=== PATIENT | female | born 1960 | race Caucasian/White ===

== ENCOUNTER 2018-02-21 09:33 | Inpatient (IN) | payer OTHER, MEDICARE ==
[~2018-02-21] VITALS: Ht 165.1 cm; Wt 118.8 kg
[~2018-02-21 09:33] MED LIST: BENI20TA25; CLON1; DILA4TAB10; LEVO.05; METH40TA9; PROV200T11; [UNRECOGNIZED DRUG - CODE]
[2018-02-21 09:38] VITALS: BP 193/85; PULSE 84; RESP 16; TEMP 98.1; O2SAT 99
[2018-02-21] MEDS ORDERED: LEVO50TA4 PO (09:51)
[2018-02-21] MEDS ORDERED: BENA1TAB42 PO (09:51)
[2018-02-21] MEDS ORDERED: AMBI5TAB PO (09:51)
[2018-02-21] MEDS ORDERED: SUBO8MIS SL (09:51)
[2018-02-21] MEDS ORDERED: LORazepam 2 MG/ML VIAL IV PUSH ONE (10:30)
[2018-02-21] MEDS ORDERED: ACETAMINOPHEN/HYDROcodone 325 MG/5 MG TAB PO ONE (10:30)
--- NOTE | 2018-02-21 10:34 | PD ---
HPI Chief Complaint: Medical Clearance Time Seen by Provider: 09:51 Travel History International Travel<30 days: No Contact w/Intl Traveler<30days: No Traveled to known affect area: No History of Present Illness HPI 57-year-old female presents to the emergency department complaining of chest pain, shortness of breath, nausea, generalized pain all over, her chest feeling heavy, heart racing, body feeling like it is "seizing", hot and cold sweats that are worsening after stopping taking methadone 9 days ago and Lyrica 2 weeks ago. She was in pain management for history of chronic neck pain, disc herniation, and fibromyalgia. She was on methadone for 20 years. Her doctor took her off the Lyrica and the methadone cold turkey. She also reports having suicidal ideation and gesture and was looking for a gun in the house this morning and could not find it. Denies homicidal ideations. Denies fever, vomiting. Symptoms are moderate to severe in severity. Duration chronic. Onset 9-14 days ago with discontinuation of medications. Says her symptoms will be relieved by receiving an opioid. She says she was also seen at [facility] last night and was given Vistaril, Ambien, and Ativan which did no help for her and they basically told her to deal with her withdrawals and get through it. Allergies to prochlorperazine. Has no other medical complaints. Has a primary care provider. No other modifying factors or associated signs and symptoms. PFSH Past Medical History Medical other: Yes (fibromyalgia) Pancreatitis: Yes (CHRONIC) Menopausal: Yes Past Surgical History Appendectomy: Yes (1985) Cholecystectomy: Yes (2005) Social History Alcohol Use: No Tobacco Use: No Substance Use: No Allergies-Medications (Allergen,Severity, Reaction): Coded Allergies: prochlorperazine (Unverified Allergy, Mild, 02/21/18) Reported Meds & Prescriptions Reported Meds & Active Scripts Active Reported Levothyroxine (Levothyroxine Sodium) 137 Mcg Tab 137 Mcg PO DAILY Benazepril-Hydrochlorothiazide 20-12.5 Mg Tab 1 Tab PO DAILY Suboxone Sublingual Film (Buprenorphine-Naloxone Sublingual Film) 8-2 Mg Film 1 Film SL Unique ID number required: Ambien (Zolpidem Tartrate) 5 Mg Tab 5 Mg PO HS PRN Review of Systems Except as stated in HPI: all other systems reviewed are Neg Physical Exam Narrative GENERAL: Well-nourished, well-developed feet patient, in no acute distress; tearful SKIN: Warm and dry. HEAD: Atraumatic. Normocephalic. EYES: Pupils equal and round. ENT: Mucosa pink and moist. NECK: Supple. Trachea midline. CARDIOVASCULAR: Regular rate and rhythm. No murmur appreciated. RESPIRATORY: No accessory muscle use. Clear to auscultation. Breath sounds equal bilaterally. GASTROINTESTINAL: Abdomen soft, non-tender, nondistended. Hepatic and splenic margins not palpable. Bowel sounds are active 4 quadrants. MUSCULOSKELETAL: No obvious deformities. No clubbing. No cyanosis. No edema. NEUROLOGICAL: Awake and alert. Oriented 3. No obvious cranial nerve deficits. Motor grossly within normal limits. Normal speech. Moves all extremities. 5/5 strength to all extremities. PSYCHIATRIC: No delusional thought processes. No hallucinations. Data Data Last Documented VS Vital Signs Date Time Temp Pulse Resp B/P (MAP) Pulse Ox O2 Delivery O2 Flow Rate FiO2 02/21/18 09:38 98.1 84 16 193/85 (121) 99 Orders Orders Complete Blood Count With Diff (02/21/18 10:16) Comprehensive Metabolic Panel (02/21/18 10:16) Thyroid Stimulating Hormone (02/21/18 10:16) Urinalysis - C+S If Indicated (02/21/18 10:16) Psych Screen (02/21/18 10:16) Drug Screen, Random Urine (02/21/18 10:16) Alcohol (Ethanol) (02/21/18 10:16) Salicylates (Aspirin) (02/21/18 10:16) Tylenol (Acetaminophen) (02/21/18 10:16) Electrocardiogram (02/21/18 10:16) Ckmb (Isoenzyme) Profile (02/21/18 10:16) Troponin I (02/21/18 10:16) Chest, Single Ap (02/21/18 10:16) Lorazepam Inj (Ativan Inj) (02/21/18 10:30) Acetamin-Hydrocod 325-5 Mg ([place] 5-325 (02/21/18 10:30) Vascular Access Team Consult/P PRN (02/21/18 10:47) Vascular Poc Ultrasound (02/21/18 ) Lorazepam Inj (Ativan Inj) (02/21/18 11:00) Quetiapine (Seroquel) (02/21/18 15:00) Admit Order (Ed Use Only) (02/21/18 ) Admit To Inpatient Psych (02/21/18 ) Code Status (02/21/18 15:09) Vital Signs (Adult) BRYAN.Q12H.E (02/21/18 15:09) Activity Oob Ad Bridget (02/21/18 15:09) Level Of Observation (Psych) (02/21/18 15:09) Acetaminophen (Tylenol) (02/21/18 15:15) Magnesium Hydroxide Liq (Milk Of Magnesi (02/21/18 15:15) Al-Mag Hy-Si 40-40-4 Mg/Ml Liq (Mag-Al P (02/21/18 15:15) Basic Metabolic Panel (Bmp) (02/22/18 06:00) Lipid Profile (02/22/18 06:00) Hemoglobin (Hgb) A1c (02/22/18 06:00) Electrocardiogram (02/22/18 ) Labs Laboratory Tests Test 02/21/18 13:50 White Blood Count 11.4 TH/MM3 Red Blood Count 4.63 MIL/MM3 Hemoglobin 13.0 GM/DL Hematocrit 39.3 % Mean Corpuscular Volume 85.0 FL Mean Corpuscular Hemoglobin 28.2 PG Mean Corpuscular Hemoglobin Concent 33.1 % Red Cell Distribution Width 14.7 % Platelet Count 220 TH/MM3 Mean Platelet Volume 10.2 FL Neutrophils (%) (Auto) 67.8 % Lymphocytes (%) (Auto) 23.6 % Monocytes (%) (Auto) 6.2 % Eosinophils (%) (Auto) 1.5 % Basophils (%) (Auto) 0.9 % Neutrophils # (Auto) 7.7 TH/MM3 Lymphocytes # (Auto) 2.7 TH/MM3 Monocytes # (Auto) 0.7 TH/MM3 Eosinophils # (Auto) 0.2 TH/MM3 Basophils # (Auto) 0.1 TH/MM3 CBC Comment DIFF FINAL Differential Comment Blood Urea Nitrogen 16 MG/DL Creatinine 1.00 MG/DL Random Glucose 86 MG/DL Total Protein 8.2 GM/DL Albumin 3.9 GM/DL Calcium Level 9.4 MG/DL Alkaline Phosphatase 70 U/L Aspartate Amino Transf (AST/SGOT) 12 U/L Alanine Aminotransferase (ALT/SGPT) 26 U/L Total Bilirubin 0.9 MG/DL Sodium Level 142 MEQ/L Potassium Level 3.6 MEQ/L Chloride Level 108 MEQ/L Carbon Dioxide Level 25.5 MEQ/L Anion Gap 9 MEQ/L Estimat Glomerular Filtration Rate 57 ML/MIN Total Creatine Kinase 49 U/L Troponin I LESS THAN 0.02 NG/ML Thyroid Stimulating Hormone 3rd Gen 2.590 uIU/ML Salicylates Level LESS THAN 1.7 MG/DL Acetaminophen Level LESS THAN 2.0 MCG/ML Ethyl Alcohol Level LESS THAN 3 MG/DL MDM Medical Decision Making Medical Screen Exam Complete: Yes Emergency Medical Condition: Yes Medical Record Reviewed: Yes Differential Diagnosis Opioid withdrawal, depression, suicidal ideation, suicidal gesture, chronic pain , medical clearance for psychiatric admission Narrative Course Patient withdrawing from methadone and Lyrica and having suicidal ideation and gesture of looking for a gun in her home this morning and not being able to find it. I feel the patient meets You act criteria. She was taken off methadone 9 days ago. And she was taken off her Lyrica 2 weeks ago. Patient has multiple complaints. Patient is requesting an opioid. I discussed the patient with Dr. Simeon and he will evaluate the patient. Chest pain protocol ordered. 1020: Dr. Simeon evaluated the patient and agrees the patient needs to be You acted. You act initiated. The patient is asking for an opioid and Dr. Simeon agrees to go ahead and administer an opioid at patient's request. Ativan, [place] ordered. 1159: Chest x-ray with no acute findings. All labs are unremarkable. Troponin less than 0.02. EKG with normal sinus rhythm and without ST elevation or depression; reviewed by Dr. Simeon. Patient is medically cleared for psychiatric evaluation. Diagnosis Primary Impression: Chronic pain Qualified Codes: G89.29 - Other chronic pain Additional Impressions: Opioid withdrawal Suicidal ideation Suicide gesture Qualified Codes: X83.8XXA - Intentional self-harm by other specified means, initial encounter Medical clearance for psychiatric admission Condition: Stable Malissa Del Angel Feb 21, 2018 10:34
--- NOTE | 2018-02-21 10:35 | PD ---
Data Data Last Documented VS Vital Signs Date Time Temp Pulse Resp B/P (MAP) Pulse Ox O2 Delivery O2 Flow Rate FiO2 02/21/18 09:38 98.1 84 16 193/85 (121) 99 Orders Orders Complete Blood Count With Diff (02/21/18 10:16) Comprehensive Metabolic Panel (02/21/18 10:16) Thyroid Stimulating Hormone (02/21/18 10:16) Urinalysis - C+S If Indicated (02/21/18 10:16) Psych Screen (02/21/18 10:16) Drug Screen, Random Urine (02/21/18 10:16) Alcohol (Ethanol) (02/21/18 10:16) Salicylates (Aspirin) (02/21/18 10:16) Tylenol (Acetaminophen) (02/21/18 10:16) Electrocardiogram (02/21/18 10:16) Ckmb (Isoenzyme) Profile (02/21/18 10:16) Troponin I (02/21/18 10:16) Chest, Single Ap (02/21/18 10:16) Lorazepam Inj (Ativan Inj) (02/21/18 10:30) Acetamin-Hydrocod 325-5 Mg ([place] 5-325 (02/21/18 10:30) MDM Supervised Visit with TAYLA: No Narrative Course I, Dr. Simeon, have reviewed the advance practice practitioner's documentation and am in agreement, met with the patient face to face, made the diagnosis, and the medical decision making was done by me. *My assessment and Findings: Patient seen and examined by me in addition to Malissa JIMÉNEZ, 57-year-old female with a history of fibromyalgia, chronic neck pain presents emergency department for evaluation of suicidal ideation. Patient has been weaning herself off of methadone, she states the pain is been getting worse to the point where she is suicidal. She admitted to my nurse practitioner that she was looking for the gun in the house but could not find it this morning. Patient really only wants management of her chronic pain and does not really endorse suicidal attempt to me. This is You act criteria and that has been so filled out by me. 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 It is unclear to me as if the patient's pain is actually may be a component of her chronic depression. Will need additional evaluation by psychiatry. At this time she has no medical complaints that warrant further workup. She was given pain medicine and Ativan. I do not see any reason to do intraparenchymal opiates and benzos at this time. She is stable for psychiatric evaluation. Diagnosis Primary Impression: Suicidal intent Additional Impressions: Depression Fibromyalgia Chronic pain Condition: Stable Melvin Simeon MD Feb 21, 2018 10:35
[2018-02-21] MEDS ORDERED: LORazepam 2 MG/ML VIAL IM ONE (11:00)
--- NOTE | 2018-02-21 11:57 | RADRPT ---
EXAM DATE/TIME: 02/21/2018 11:09 [facility] COMPARISON: No previous studies available for comparison. INDICATIONS : Chest and back pain for months. MEDICAL HISTORY : Hypertension. SURGICAL HISTORY : None. ENCOUNTER: Initial ACUITY: 3 months PAIN SCORE: 9/10 LOCATION: Bilateral chest and back FINDINGS: A single view of the chest demonstrates the lungs to be symmetrically aerated without evidence of mas s, infiltrate or effusion. The cardiomediastinal contours are unremarkable. Osseous structures are intact. CONCLUSION: Normal examination. Moreno Villagran MD on February 21, 2018 at 11:54 Board Certified Radiologist. This report was verified electronically.
[2018-02-21 14:09] LABS: AUTOMATED NEUTROPHIL # 7.7 TH/MM3 (1.8-7.7); BASOPHIL # 0.1 TH/MM3 (0-0.2); BASOPHIL % 0.9 % (0.0-2.0); EOSINOPHIL # 0.2 TH/MM3 (0-0.4); EOSINOPHIL % 1.5 % (0.0-4.0); HEMATOCRIT 39.3 % (35.0-46.0); LYMPH % 23.6 % (9.0-44.0); LYMPHOCYTE # 2.7 TH/MM3 (1.0-4.8); MEAN CORPUSCULAR HEMOGLOBIN 28.2 PG (27.0-34.0); MEAN CORPUSCULAR HGB CONC 33.1 % (32.0-36.0); MEAN PLATELET VOLUME 10.2 FL (7.0-11.0); MONO % 6.2 % (0.0-8.0); MONOCYTE # 0.7 TH/MM3 (0-0.9); NEUT % 67.8 % (16.0-70.0); PLATELET COUNT 220 TH/MM3 (150-450); RED BLOOD COUNT 4.63 MIL/MM3 (4.00-5.30); RED CELL DISTRIBUTION WIDTH 14.7 % (11.6-17.2); WHITE BLOOD COUNT 11.4 TH/MM3 (4.0-11.0)
[2018-02-21 14:42] LABS: ALBUMIN 3.9 GM/DL (3.4-5.0); ALT (GPT) 26 U/L (10-53); AST (GOT) 12 U/L (15-37); BICARBONATE 25.5 MEQ/L (21.0-32.0); BLOOD UREA NITROGEN 16 MG/DL (7-18); CALCIUM 9.4 MG/DL (8.5-10.1); CHLORIDE 108 MEQ/L (98-107); GLOMERULAR FILTRATION RATE 57 ML/MIN (>89); GLUCOSE,RANDOM 86 MG/DL (74-106); SODIUM (NA) 142 MEQ/L (136-145)
[2018-02-21 14:52] LABS: ACETAMINOPHEN LESS THAN 2.0 MCG/ML (10.0-30.0); ALKALINE PHOSPHATASE 70 U/L (45-117); TOTAL BILIRUBIN ADULT 0.9 MG/DL (0.2-1.0); TOTAL PROTEIN 8.2 GM/DL (6.4-8.2); TROPONIN I LESS THAN 0.02 NG/ML (0.02-0.05)
[2018-02-21] MEDS ORDERED: QUEtiapine FUMARATE 100 MG TAB PO ONE (15:00)
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
[2018-02-21] MEDS ORDERED: MAGNESIUM HYDROXIDE SUSP 30 ML CUP PO PRN (15:15)
[2018-02-21] MEDS ORDERED: ALUMINUM/MAGNESIUM/SIMETH 30 ML CUP PO PRN (15:15)
[2018-02-21] MEDS ORDERED: LEVO137T2 PO (15:32)
[2018-02-21] MEDS ORDERED: BENA20TA3 PO (15:32)
[2018-02-21 18:12] VITALS: BP 121/63; PULSE 89; RESP 16; TEMP 97.1; O2SAT 98
[2018-02-21] MEDS ORDERED: hydrOXYzine HCL 50 MG TAB PO ONE (20:45)
[2018-02-21] MEDS: ACETAMINOPHEN 325 MG TAB PO PRN (20:50)
[2018-02-22 05:25] VITALS: BP 172/91; PULSE 82; RESP 18; TEMP 97.4; O2SAT 97
[2018-02-22] MEDS: LEVOTHYROXINE SODIUM 112 MCG TAB PO SCH (05:54)
[2018-02-22] MEDS: LEVOTHYROXINE SODIUM 25 MCG TAB PO SCH (05:54)
[2018-02-22 07:24] LABS: BICARBONATE 23.2 MEQ/L (21.0-32.0); BLOOD UREA NITROGEN 17 MG/DL (7-18); CALCIUM 9.6 MG/DL (8.5-10.1); CHLORIDE 106 MEQ/L (98-107); CHOLESTEROL 193 MG/DL (120-200); CREATININE 0.89 MG/DL (0.50-1.00); GLOMERULAR FILTRATION RATE 65 ML/MIN (>89); GLUCOSE,RANDOM 88 MG/DL (74-106); SODIUM (NA) 140 MEQ/L (136-145); TRIGLYCERIDES 86 MG/DL (42-150)
[2018-02-22 07:28] LABS: CHOLESTEROL/ HDL RATIO 3.78 RATIO; LDL CHOLESTEROL 125 MG/DL (0-99)
[2018-02-22] MEDS: HYDROCHLOROTHIAZIDE 12.5 MG CAP PO SCH (08:43)
[2018-02-22] MEDS: LISINOPRIL 20 MG TAB PO SCH (08:43)
[2018-02-22] MEDS ORDERED: NON-FORMULARY DRUG (Benazepril-Hydrochlorothiazide 1 TAB) PO SCH (09:00)
[2018-02-22] MEDS ORDERED: NON-FORMULARY DRUG (Levothyroxine 137 MCG) PO SCH (09:00)
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
[2018-02-22] MEDS ORDERED: cloNIDine HCL 0.1 MG TAB PO PRN (13:15)
[2018-02-22] MEDS: DULoxetine HCl DR 60 MG CAP PO SCH (13:30)
[2018-02-22] MEDS: hydrOXYzine HCL 50 MG TAB PO PRN (14:29)
[2018-02-22] MEDS: ACETAMINOPHEN 325 MG TAB PO PRN (14:31)
--- NOTE | 2018-02-22 14:34 | PD.CONS ---
[facility] Reason for Consult Patietn w hx of persistetn back, neck pain. Hx of methadone x 20 years. Curently on Suboxone. Please evaluate and manage care. Primary Care Physician No Primary Care Physician Diagnoses: History of Present Illness Patient is a 57-year-old female with primary medical history of HTN, cervical stenosis, chronic neck pain who initially came to the hospital for generalized pain all over, chest feeling heavy, heart racing, but he feels like seizing" sweats worsening after stopping taking methadone and Lyrica. She reports suicidal ideation. She is now admitted to inpatient psychiatry unit for further evaluation. Consulted for assistance with persistent back and neck pain with history of methadone use and Suboxone use. Patient seen and examined today. 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 She was under pain management 20 years and was placed on methadone ever since. Patient states she recently moved to the area and had Dr. Long as her pain management doctor when she was telling him that she wanted a different medication and wanted to get in with medical marijuana. Dr. Mirza switch her over to Suboxone. States that it did not work for her she saw him again and was added oxycodone. However this also did not help her. She states that she does not want to be in any narcotic medication right now. She wants to try to get into medical marijuana as an outpatient. However right now she is also complaining of neck pain. States that she had cervical surgery 3 to anterior and posterior cervical fusion. Patient states she has pins and needles bilateral lower extremities. Denies SOB / dyspnea. Denies chest pain, palpitations, headaches, dizziness. Denies fevers , chills, n/v/d. Denies dysuria. Review of Systems Except as stated in HPI: all other systems reviewed are Neg Past Family Social History Allergies: Coded Allergies: prochlorperazine (Unverified Allergy, Mild, 02/21/18) Past Medical History Chronic neck pain Cervical stenosis with cervical fusions HTN HLD Fibromyalgia Chronic pancreatitis Past Surgical History 2 Breast augmentation Cholecystectomy Appendectomy Cervical spine fusions 3 Reported Medications Reported Meds & Active Scripts Active Reported Levothyroxine (Levothyroxine Sodium) 137 Mcg Tab 137 Mcg PO DAILY Benazepril-Hydrochlorothiazide 20-12.5 Mg Tab 1 Tab PO DAILY Suboxone Sublingual Film (Buprenorphine-Naloxone Sublingual Film) 8-2 Mg Film 1 Film SL Unique ID number required: Ambien (Zolpidem Tartrate) 5 Mg Tab 5 Mg PO HS PRN Active Ordered Medications Current Medications Medications (Trade) Dose Ordered Sig/Shona Route Start Time Stop Time Status Last Admin (Tylenol) 650 mg Q4H PRN PO 02/21/18 15:15 02/22/18 14:31 (Milk Of Magnesia Liq) 30 ml DAILY PRN PO 02/21/18 15:15 (Mag-Al Plus Susp Liq) 30 ml Q6H PRN PO 02/21/18 15:15 (Synthroid) 112 mcg DAILY@0600 PO 02/22/18 06:00 02/22/18 05:54 (Synthroid) 25 mcg DAILY@0600 PO 02/22/18 06:00 02/22/18 05:54 (Prinivil) 20 mg DAILY PO 02/22/18 09:00 02/22/18 08:43 (Microzide) 12.5 mg DAILY PO 02/22/18 09:00 02/22/18 08:43 (Catapres) 0.1 mg Q6H PRN PO 02/22/18 13:15 (Cymbalta Dr) 60 mg DAILY PO 02/22/18 13:30 02/22/18 13:30 (SEROquel) 150 mg HS PO 02/22/18 21:00 (Atarax) 50 mg Q6H PRN PO 02/22/18 13:30 02/22/18 14:29 (Lioresal) 10 mg Q8HR PO 02/22/18 14:45 (Neurontin) 300 mg TID PO 02/22/18 18:00 (Toradol) 10 mg Q6H PRN PO 02/22/18 14:45 02/27/18 14:44 (Catapres-Tts 0.1mg Patch.7d) 1 patch Q7D T-DERMAL 02/22/18 14:45 Miscellaneous Information 1 Q7D T-DERMAL 03/01/18 14:45 Family History Mother has diabetes on p.o. meds only Father is an alcoholic Social History Denies alcohol use Denies tobacco use Denies illicit drug use Physical Exam Vital Signs Vital Signs Date Time Temp Pulse Resp B/P (MAP) Pulse Ox O2 Delivery O2 Flow Rate FiO2 02/22/18 05:25 97.4 82 18 172/91 (118) 97 02/21/18 18:12 97.1 89 16 121/63 (82) 98 Physical Exam GENERAL: This is an obese, well-developed patient, in no apparent distress. SKIN: Cool and dry. Cervical scars from previous surgery present. HEAD: Atraumatic. Normocephalic. No temporal or scalp tenderness. EYES: Pupils equal round and reactive. Extraocular motions intact. No scleral icterus. No injection or drainage. ENT: Nose without bleeding. Throat without erythema. Uvula midline. Airway patent. NECK: Trachea midline. Limited R OM unable to hyperextend, Hyperflex. Unable to turn laterally. CARDIOVASCULAR: Regular rate and rhythm without murmurs, gallops, or rubs. RESPIRATORY: Clear to auscultation. Breath sounds equal bilaterally. No wheezes , rales, or rhonchi. GASTROINTESTINAL: Abdomen soft, non-tender, nondistended. MUSCULOSKELETAL: Extremities without clubbing, cyanosis, or edema. Joint tenderness Bilateral knee. No calf tenderness. NEUROLOGICAL: Awake and alert. Cranial nerves II through XII intact. Motor and sensory grossly within normal limits. Normal speech. Laboratory Laboratory Tests Test 02/22/18 06:38 Blood Urea Nitrogen 17 Creatinine 0.89 Random Glucose 88 Calcium Level 9.6 Sodium Level 140 Potassium Level 3.7 Chloride Level 106 Carbon Dioxide Level 23.2 Anion Gap 11 Estimat Glomerular Filtration Rate 65 Triglycerides Level 86 Cholesterol Level 193 LDL Cholesterol 125 HDL Cholesterol 51.0 Cholesterol/HDL Ratio 3.78 Result Diagram: 02/21/18 1350 02/22/18 0638 Imaging Last Impressions Chest X-Ray 02/21/18 1016 Signed Impressions: Service Date/Time: Wednesday, February 21, 2018 11:09 - CONCLUSION: Normal examination. Moreno Villagran MD Assessment and Plan Problem List: (1) HTN (hypertension) ICD Code: I10 - Essential (primary) hypertension (2) Adjustment disorder with mixed anxiety and depressed mood ICD Code: F43.23 - Adjustment disorder with mixed anxiety and depressed mood (3) Adjustment disorder with depressed mood ICD Code: F43.21 - Adjustment disorder with depressed mood (4) Opioid withdrawal ICD Code: F11.23 - Opioid dependence with withdrawal Status: Acute (5) Chronic pain ICD Code: G89.29 - Other chronic pain Status: Acute (6) Fibromyalgia ICD Code: M79.7 - Fibromyalgia Status: Acute Assessment and Plan Patient is a 57-year-old female with primary medical history of HTN, cervical stenosis, chronic neck pain who initially came to the hospital for generalized pain all over, chest feeling heavy, heart racing, but he feels like seizing" sweats worsening after stopping taking methadone and Lyrica. She reports suicidal ideation. She is now admitted to inpatient psychiatry unit for further evaluation. Consulted for assistance with persistent back and neck pain with history of methadone use and Suboxone use. Adjustment disorder, depressed mood Suicidal ideation -Managed by psychiatry team Chronic pain Fibromyalgia Neuropathy Possible opiate withdrawal -Possibly with depressive component. -Patient does want opioid narcotics. Baclofen 3 times daily. Gabapentin 3 times daily. Toradol as needed. -Clonidine patch 1 dose. Will not send patient home with patch. HTN -Continue home medication hydrochlorothiazide, lisinopril -Monitor BP trend -Clonidine patch added for opiate withdrawal HLD -Patient states she was taking fenofibrate prior. -ASCVD risk less than 5%. She is not a statin therapy candidate. Discussed extensively lifestyle changes including diet and exercise and weight loss. DVT prop ambulatory Code Status Full code Discussed Condition With Patient, nursing Problem Qualifiers (1) Chronic pain: Qualified Codes: G89.29 - Other chronic pain Delaney Molina Feb 22, 2018 14:34
[2018-02-22] MEDS ORDERED: cloNIDine HCL 0.1 MG/24 HR PATCH T-DERMAL SCH (14:45)
[2018-02-22] MEDS: BACLOFEN 10 MG TAB PO SCH ×2 (16:12→20:59)
--- NOTE | 2018-02-22 16:36 | EKG ---
Date Performed: 02/22/2018 Time Performed: 12:53:48 PTAGE: 57 years EKG: Sinus rhythm WITH SHORT UT INTERVAL MODERATE INTRAVENTRICULAR CONDUCTION DELAY BORDERLINE ECG PREVIOUS TRACING : 02/21/2018 10.44 Since the previous tracing, no significant change noted DOCTOR: Vamshi Irizarry Interpretating Date/Time 02/22/2018 16:30:57
--- NOTE | 2018-02-22 16:36 | EKG ---
Date Performed: 02/21/2018 Time Performed: 10:44:12 PTAGE: 57 years EKG: Sinus rhythm MODERATE INTRAVENTRICULAR CONDUCTION DELAY BORDERLINE ECG PREVIOUS TRACING : 05/15/2001 10.05 Since the previous tracing, no significant change noted DOCTOR: Vamshi Irizarry Interpretating Date/Time 02/22/2018 16:30:50
[2018-02-22] MEDS: KETOROLAC TROMETHAMINE 10 MG TAB PO PRN (17:23)
[2018-02-22] MEDS: GABAPENTIN 300 MG CAP PO SCH (17:23)
[2018-02-22 18:30] VITALS: BP 165/96; PULSE 72; RESP 16; TEMP 97.3; O2SAT 97
[2018-02-22 18:40] LABS: HEMOGLOBIN A1C 5.2 % (4.3-6.0)
[2018-02-22] MEDS ORDERED: QUEtiapine FUMARATE 100 MG TAB PO SCH (21:00)
[2018-02-23] MEDS: hydrOXYzine HCL 50 MG TAB PO PRN ×4 (04:09→21:55)
[2018-02-23 05:25] VITALS: BP 164/76; PULSE 70; RESP 18; TEMP 97.4; O2SAT 98
[2018-02-23] MEDS: LEVOTHYROXINE SODIUM 25 MCG TAB PO SCH (06:24)
[2018-02-23] MEDS: LEVOTHYROXINE SODIUM 112 MCG TAB PO SCH (06:24)
[2018-02-23] MEDS: BACLOFEN 10 MG TAB PO SCH ×3 (06:24→21:55)
[2018-02-23] MEDS: DULoxetine HCl DR 60 MG CAP PO SCH (09:33)
[2018-02-23] MEDS: GABAPENTIN 300 MG CAP PO SCH ×3 (09:33→18:02)
[2018-02-23] MEDS: LISINOPRIL 20 MG TAB PO SCH (09:33)
[2018-02-23] MEDS: HYDROCHLOROTHIAZIDE 12.5 MG CAP PO SCH (09:34)
[2018-02-23] MEDS: KETOROLAC TROMETHAMINE 10 MG TAB PO PRN (09:35)
--- NOTE | 2018-02-23 13:59 | HHI.PYPN ---
Subjective Chief Complaint: Depression, anxiety, SI Remarks Patient seen and examined with nurse. Chart reviewed. Case discussed with nursing staff. Case discussed in treatment team. On my examination today, the patient reports that she slept somewhat better with titration of Seroquel although she notes there is still room for improvement. She notes that anxiety still remains an issue for her, and we discuss adding morning and afternoon doses of Seroquel off label to manage this anxiety. Mood is improving. She denies any suicidal ideation. Denies any side effects from medications. Chronic pain issues are subsiding, and the patient has no acute physical complaints. Review of Systems Except as stated in HPI: all other systems reviewed are Neg Mental Status Examination Appearance: Appropriate Consciousness: Alert Orientation: x4 Motor Activity: Other (Mild cogwheeling. No hand tremor, no dystonia, no dyskinesia, no other motor abnormalities noted.) Speech: Unremarkable Language: Adequate Fund of Knowledge: Adequate Attention and Concentration: Adequate Memory: Unremarkable (Grossly intact on clinical exam) Mood: Other (Less dysphoric) Affect: Other (More full and reactive) Thought Process & Associations: Intact, Logical, Linear Thought Content: Appropriate Hallucination Type: None Delusion Type: None Suicidal Ideation: No Suicidal Plan: No Suicidal Intention: No Homicidal Ideation: No Homicidal Plan: No Homicidal Intention: No Insight: Fair Judgment: Impulsive Results Labs Labs reviewed Vitals/IOs Vital Signs Date Time Temp Pulse Resp B/P (MAP) Pulse Ox O2 Delivery O2 Flow Rate FiO2 02/23/18 10:35 18 02/23/18 05:25 97.4 70 164/76 (105) 98 Assessment & Plan Problem List: (1) Adjustment disorder with mixed anxiety and depressed mood ICD Codes: F43.23 - Adjustment disorder with mixed anxiety and depressed mood Assessment & Plan Titrate Seroquel to 25/25/200mg. Continue Cymbalta as ordered. Hospitalist input noted and appreciated. Continue to monitor on the inpatient unit. Continue other medications and care as ordered. Justification for Cont. Inpt. Med changes. Monitoring for impairment in safety, none noted. Discharge Planning Possible discharge after the weekend Request HC Surrog/Guard Advoc?: No Marc Mckeon MD Feb 23, 2018 13:59
--- NOTE | 2018-02-23 14:51 | HHI.PR ---
Subjective Remarks Follow up visit HTN, cervical stenosis, chronic neck and back pain, neuropathy, fibromyalgia. Patient seen and examined today. Reports she is feeling a lot better. The pins and needles in her legs have improved a little bit. Patient is requesting increased dose of gabapentin. Otherwise, denies cough, S OB dyspnea, chest pain, palpitations, headache, dizziness. Denies fevers, chills, n /v/d. Denies dysuria. Objective Vitals Vital Signs Date Time Temp Pulse Resp B/P (MAP) Pulse Ox O2 Delivery O2 Flow Rate FiO2 02/23/18 10:35 18 02/23/18 05:25 97.4 70 18 164/76 (105) 98 02/22/18 18:30 97.3 72 16 165/96 (119) 97 Result Diagram: 02/21/18 1350 02/22/18 0638 Imaging Last Impressions Chest X-Ray 02/21/18 1016 Signed Impressions: Service Date/Time: Wednesday, February 21, 2018 11:09 - CONCLUSION: Normal examination. Moreno Villagran MD Objective Remarks GENERAL: This is an obese, well-developed patient, in no apparent distress. SKIN: Cool and dry. Cervical scars from previous surgery present. HEAD: Atraumatic. Normocephalic. No temporal or scalp tenderness. EYES: Pupils equal round and reactive. Extraocular motions intact. No scleral icterus. No injection or drainage. ENT: Nose without bleeding. Throat without erythema. Uvula midline. Airway patent. NECK: Trachea midline. Limited R OM unable to hyperextend, Hyperflex. Unable to turn laterally. CARDIOVASCULAR: Regular rate and rhythm without murmurs, gallops, or rubs. RESPIRATORY: Clear to auscultation. Breath sounds equal bilaterally. No wheezes , rales, or rhonchi. GASTROINTESTINAL: Abdomen soft, non-tender, nondistended. MUSCULOSKELETAL: Extremities without clubbing, cyanosis, or edema. Joint tenderness Bilateral knee. No calf tenderness. NEUROLOGICAL: Awake and alert. Cranial nerves II through XII intact. Motor and sensory grossly within normal limits. Normal speech. Procedures None A/P Problem List: (1) HTN (hypertension) ICD Code: I10 - Essential (primary) hypertension (2) Adjustment disorder with mixed anxiety and depressed mood ICD Code: F43.23 - Adjustment disorder with mixed anxiety and depressed mood (3) Adjustment disorder with depressed mood ICD Code: F43.21 - Adjustment disorder with depressed mood (4) Opioid withdrawal ICD Code: F11.23 - Opioid dependence with withdrawal Status: Acute (5) Chronic pain ICD Code: G89.29 - Other chronic pain Status: Acute (6) Fibromyalgia ICD Code: M79.7 - Fibromyalgia Status: Acute Assessment and Plan Patient is a 57-year-old female with primary medical history of HTN, cervical stenosis, chronic neck pain who initially came to the hospital for generalized pain all over, chest feeling heavy, heart racing, but he feels like seizing" sweats worsening after stopping taking methadone and Lyrica. She reports suicidal ideation. She is now admitted to inpatient psychiatry unit for further evaluation. Consulted for assistance with persistent back and neck pain with history of methadone use and Suboxone use. Adjustment disorder, depressed mood Suicidal ideation -Managed by psychiatry team Chronic pain Fibromyalgia Neuropathy Possible opiate withdrawal -Possibly with depressive component. -Patient does want opioid narcotics. Baclofen 3 times daily. Gabapentin 3 times daily. Toradol as needed. -Clonidine patch 1 dose. Will not send patient home with patch. Discussed and explained with patient -Increase gabapentin to 600 3 times daily. Patient can be sent home with gabapentin 3 times a day and baclofen 3 times a day. Will not send patient with any narcotics to go home. HTN -Continue home medication hydrochlorothiazide, lisinopril -Monitor BP trend -Clonidine patch added for opiate withdrawal HLD -Patient states she was taking fenofibrate prior. -ASCVD risk less than 5%. She is not a statin therapy candidate. Discussed extensively lifestyle changes including diet and exercise and weight loss. DVT prop ambulatory Problem Qualifiers (1) Chronic pain: Qualified Codes: G89.29 - Other chronic pain Delaney Molina Feb 23, 2018 14:51
[2018-02-23] MEDS: QUEtiapine FUMARATE 25 MG TAB PO SCH (15:47)
--- NOTE | 2018-02-23 15:58 | PD.TTN ---
Patient Problems 1. Discharge planning 2. Medication compliance 3. Knowledge deficit 4. Lack of coping skills Progress Toward Goals Provider Present: Dr. Trinity Mckeon Provider Input: 02/23/18 - Patient is presently taking Cymbalta and Seroquel. She is detoxing from opiate addicition. Psychiatric Counselors Present: MARGARET Barcenas Psych Therapist Input: 02/23/18 - Counselor spoke to the patient's who reproted the gun has been removed from the home. Group Spec/RT/OT/DUNLAP Present: FABI Thomas Group Spec/RT/OT/DUNLAP Input: 02/23/18 - liited participation. Discharge Plan [facility] 02/23/18 - Patient will return home following discharge and will follow with [facility]/ [facility], or a provider of her choice. Documentation Scribe: MARGARET Barcenas Lindsay [facility] Feb 23, 2018 15:58
[2018-02-23 18:33] VITALS: BP 135/60; PULSE 72; RESP 17; TEMP 98.6; O2SAT 95
[2018-02-23] MEDS: QUEtiapine FUMARATE 100 MG TAB PO SCH (21:55)
[2018-02-24] MEDS: BACLOFEN 10 MG TAB PO SCH ×3 (05:13→20:50)
[2018-02-24] MEDS: LEVOTHYROXINE SODIUM 112 MCG TAB PO SCH (05:13)
[2018-02-24] MEDS: LEVOTHYROXINE SODIUM 25 MCG TAB PO SCH (05:14)
[2018-02-24] MEDS: KETOROLAC TROMETHAMINE 10 MG TAB PO PRN (05:16)
[2018-02-24 05:50] VITALS: BP 150/67; PULSE 61; RESP 17; TEMP 97.6; O2SAT 100
[2018-02-24] MEDS: DULoxetine HCl DR 60 MG CAP PO SCH (09:13)
[2018-02-24] MEDS: QUEtiapine FUMARATE 25 MG TAB PO SCH ×2 (09:13→15:30)
[2018-02-24] MEDS: LISINOPRIL 20 MG TAB PO SCH (09:13)
[2018-02-24] MEDS: GABAPENTIN 300 MG CAP PO SCH ×3 (09:13→18:48)
[2018-02-24] MEDS: HYDROCHLOROTHIAZIDE 12.5 MG CAP PO SCH (09:13)
[2018-02-24] MEDS: hydrOXYzine HCL 50 MG TAB PO PRN (09:14)
--- NOTE | 2018-02-24 12:12 | HHI.PYPN ---
Subjective Chief Complaint: Depression, anxiety, SI Remarks Reviewed electronic medical record and discussed case with staff. Follow-up was conducted in patient's room with nurse present. Patient was found lying in her bed awake. She is alert and oriented 4. She reports that she slept really well last night however "when I woke up everything hurt". She additionally reports that she had a "fire in her legs". Her mood is good her affect is euthymic. She is encouraged to continue with the medication and to give her gabapentin a chance to work. Mental Status Examination Appearance: Appropriate Consciousness: Alert Orientation: x4 Motor Activity: Other (Mild cogwheeling. No hand tremor, no dystonia, no dyskinesia, no other motor abnormalities noted.) Speech: Unremarkable Language: Adequate Fund of Knowledge: Adequate Attention and Concentration: Adequate Memory: Unremarkable (Grossly intact on clinical exam) Mood: Other (Less dysphoric) Affect: Other (More full and reactive) Thought Process & Associations: Intact, Logical, Linear Thought Content: Appropriate Hallucination Type: None Delusion Type: None Suicidal Ideation: No Suicidal Plan: No Suicidal Intention: No Homicidal Ideation: No Homicidal Plan: No Homicidal Intention: No Insight: Fair Judgment: Impulsive Results Vitals/IOs Vital Signs Date Time Temp Pulse Resp B/P (MAP) Pulse Ox O2 Delivery O2 Flow Rate FiO2 02/24/18 05:50 97.6 61 17 150/67 (94) 100 Intake and Output 02/24/18 02/24/18 02/24/18 07:59 15:59 23:59 Intake Total 360 ml Balance 360 ml Assessment & Plan Problem List: (1) Adjustment disorder with mixed anxiety and depressed mood ICD Codes: F43.23 - Adjustment disorder with mixed anxiety and depressed mood Assessment & Plan Estimated LOS: Continue with current treatment plan. Medications may need to be adjusted yet. Psychiatrist will reevaluate on Monday. Days Justification for Cont. Inpt. Moving this patient to a lower level of care would likely result in a decompensation. Request HC Surrog/Guard Advoc?: No Maame Walsh Feb 24, 2018 12:12
[2018-02-24] MEDS: ACETAMINOPHEN 325 MG TAB PO PRN ×2 (13:14→21:59)
--- NOTE | 2018-02-24 13:39 | HHI.PR ---
Subjective Remarks Follow up visit HTN, cervical stenosis, chronic neck and back pain, neuropathy, fibromyalgia. Patient is seen and examined in room with nurse at bedside. She denies any SOB, cough, chest pain, N/V/D. She repots feeling fine, does report dizziness this morning that resolved around noon, no lightheadedness, or palpitations. She also repots that she has been more sleepy especially this morning, no other complaints at this moment. Objective Vitals Vital Signs Date Time Temp Pulse Resp B/P (MAP) Pulse Ox O2 Delivery O2 Flow Rate FiO2 02/24/18 05:50 97.6 61 17 150/67 (94) 100 02/23/18 18:33 98.6 72 17 135/60 (85) 95 I/O 02/23/18 02/23/18 02/23/18 02/24/18 02/24/18 02/24/18 07:00 15:00 23:00 07:00 15:00 23:00 Intake Total 240 ml 360 ml Balance 240 ml 360 ml Intake Oral 240 ml 360 ml Result Diagram: 02/21/18 1350 02/22/18 0638 Imaging Last Impressions Chest X-Ray 02/21/18 1016 Signed Impressions: Service Date/Time: Wednesday, February 21, 2018 11:09 - CONCLUSION: Normal examination. Moreno Villagran MD Objective Remarks GENERAL: This is an obese, well-developed patient, in no apparent distress. SKIN: Cool and dry. Cervical scars from previous surgery present. HEAD: Atraumatic. Normocephalic. EYES: Pupils equal round and reactive. No scleral icterus. No injection or drainage. ENT: Nose without bleeding. Airway patent. NECK: Trachea midline. Limited ROM unable to hyperextend, Hyperflex. Unable to turn laterally. CARDIOVASCULAR: Regular rate and rhythm without murmurs, gallops, or rubs. RESPIRATORY: Clear to auscultation. Breath sounds equal bilaterally. No wheezes , rales, or rhonchi. GASTROINTESTINAL: Abdomen soft, non-tender, nondistended. MUSCULOSKELETAL: Extremities without clubbing, cyanosis, or edema. Joint tenderness Bilateral knee. No calf tenderness. NEUROLOGICAL: Awake and alert. Cranial nerves II through XII grossly intact. Motor and sensory grossly within normal limits. Normal speech. Procedures None A/P Problem List: (1) HTN (hypertension) ICD Code: I10 - Essential (primary) hypertension (2) Adjustment disorder with mixed anxiety and depressed mood ICD Code: F43.23 - Adjustment disorder with mixed anxiety and depressed mood (3) Adjustment disorder with depressed mood ICD Code: F43.21 - Adjustment disorder with depressed mood (4) Opioid withdrawal ICD Code: F11.23 - Opioid dependence with withdrawal Status: Acute (5) Chronic pain ICD Code: G89.29 - Other chronic pain Status: Acute (6) Fibromyalgia ICD Code: M79.7 - Fibromyalgia Status: Acute Assessment and Plan Patient is a 57-year-old female with primary medical history of HTN, cervical stenosis, chronic neck pain who initially came to the hospital for generalized pain all over, chest feeling heavy, heart racing, but he feels like seizing" sweats worsening after stopping taking methadone and Lyrica. She reports suicidal ideation. She is now admitted to inpatient psychiatry unit for further evaluation. Consulted for assistance with persistent back and neck pain with history of methadone use and Suboxone use. Adjustment disorder, depressed mood Suicidal ideation -Managed by psychiatry team Chronic pain Fibromyalgia Neuropathy Possible opiate withdrawal -Possibly with depressive component. -Patient does want opioid narcotics. Baclofen 3 times daily. Gabapentin 3 times daily. Toradol as needed. -Clonidine patch 1 dose. Will not send patient home with patch. Previously discussed with patient -Gabapentin to 600 3 times daily. Dizziness and sleepiness now resolved likely due to increase in gabapentin - Continue monitoring. HTN -Continue home medication hydrochlorothiazide, lisinopril -Monitor BP trend -Clonidine patch added for opiate withdrawal HLD -Patient states she was taking fenofibrate prior. -ASCVD risk less than 5%. She is not a statin therapy candidate. - Encouraged lifestyle changes including diet and exercise and weight loss. DVT prop ambulatory Discussed with patient and nurse. Problem Qualifiers (1) Chronic pain: Qualified Codes: G89.29 - Other chronic pain Maco Ocampo Feb 24, 2018 13:39
[2018-02-24 18:16] VITALS: BP 123/57; PULSE 68; RESP 17; TEMP 98.2; O2SAT 95
[2018-02-24] MEDS: QUEtiapine FUMARATE 100 MG TAB PO SCH (20:50)
[2018-02-25] MEDS: ACETAMINOPHEN 325 MG TAB PO PRN ×3 (02:25→17:09)
[2018-02-25 05:17] VITALS: BP 143/67; PULSE 55; RESP 17; TEMP 98.4; O2SAT 96
[2018-02-25] MEDS: LEVOTHYROXINE SODIUM 112 MCG TAB PO SCH (05:47)
[2018-02-25] MEDS: BACLOFEN 10 MG TAB PO SCH ×3 (05:47→21:19)
[2018-02-25] MEDS: LEVOTHYROXINE SODIUM 25 MCG TAB PO SCH (05:47)
[2018-02-25] MEDS: KETOROLAC TROMETHAMINE 10 MG TAB PO PRN (06:54)
[2018-02-25] MEDS: HYDROCHLOROTHIAZIDE 12.5 MG CAP PO SCH (09:00)
[2018-02-25] MEDS: LISINOPRIL 20 MG TAB PO SCH (09:00)
[2018-02-25] MEDS: DULoxetine HCl DR 60 MG CAP PO SCH (09:01)
[2018-02-25] MEDS: QUEtiapine FUMARATE 25 MG TAB PO SCH ×2 (09:01→14:50)
[2018-02-25] MEDS: GABAPENTIN 300 MG CAP PO SCH ×3 (09:01→18:08)
[2018-02-25] MEDS: hydrOXYzine HCL 50 MG TAB PO PRN ×2 (09:59→17:14)
--- NOTE | 2018-02-25 11:38 | HHI.PYPN ---
Subjective Chief Complaint: Depression, anxiety, SI Remarks Reviewed electronic medical record discussed case with staff. Follow-up was conducted in patient's room. Patient was found sitting in the day room and ambulated to her room without difficulty. She is awake, alert, and oriented 4. She continues to complain of "lots of different aches and pains". She states that she woke up around 2:30 in the morning and was unable to get back to sleep. Reports that her appetite has been good. Her mood is sad and her affect is slightly blunted. Mental Status Examination Appearance: Appropriate Consciousness: Alert Orientation: x4 Motor Activity: Other (Mild cogwheeling. No hand tremor, no dystonia, no dyskinesia, no other motor abnormalities noted.) Speech: Unremarkable Language: Adequate Fund of Knowledge: Adequate Attention and Concentration: Adequate Memory: Unremarkable (Grossly intact on clinical exam) Mood: Other (Less dysphoric) Affect: Other (More full and reactive) Thought Process & Associations: Intact, Logical, Linear Thought Content: Appropriate Hallucination Type: None Delusion Type: None Suicidal Ideation: No Suicidal Plan: No Suicidal Intention: No Homicidal Ideation: No Homicidal Plan: No Homicidal Intention: No Insight: Fair Judgment: Impulsive Results Vitals/IOs Vital Signs Date Time Temp Pulse Resp B/P (MAP) Pulse Ox O2 Delivery O2 Flow Rate FiO2 02/25/18 08:00 16 02/25/18 05:17 98.4 55 143/67 (92) 96 Intake and Output 02/25/18 02/25/18 02/26/18 08:00 16:00 00:00 Intake Total 480 ml Balance 480 ml Assessment & Plan Problem List: (1) Adjustment disorder with mixed anxiety and depressed mood ICD Codes: F43.23 - Adjustment disorder with mixed anxiety and depressed mood Assessment & Plan Estimated LOS: Continue with current treatment plan. Attending psychiatrist will reevaluate tomorrow. Days Justification for Cont. Inpt. Moving this patient to a lower level of care would likely result in a decompensation. Request HC Surrog/Guard Advoc?: Maame Yuan Feb 25, 2018 11:37
--- NOTE | 2018-02-25 16:11 | HHI.PR ---
Subjective Remarks Follow up visit HTN, cervical stenosis, chronic neck and back pain, neuropathy, fibromyalgia. Patient seen and examined in the activity room. Patient states she does have continued bilateral lower extremity nerve pain despite gabapentin and baclofen. Patient denies any further dizziness. She denies any recent fever, chills, cough, headache, shortness of breath, abdominal pain, nausea, vomiting, diarrhea or dysuria. Has been eating well. Ambulating well. Objective Vitals Vital Signs Date Time Temp Pulse Resp B/P (MAP) Pulse Ox O2 Delivery O2 Flow Rate FiO2 02/25/18 11:00 16 02/25/18 08:00 16 02/25/18 05:17 98.4 55 17 143/67 (92) 96 02/24/18 18:16 98.2 68 17 123/57 (79) 95 I/O 02/24/18 02/24/18 02/24/18 02/25/18 02/25/18 02/25/18 07:00 15:00 23:00 07:00 15:00 23:00 Intake Total 360 ml 480 ml 900 ml Balance 360 ml 480 ml 900 ml Intake Oral 360 ml 480 ml 900 ml Result Diagram: 02/21/18 1350 02/22/18 0638 Imaging Last Impressions Chest X-Ray 02/21/18 1016 Signed Impressions: Service Date/Time: Wednesday, February 21, 2018 11:09 - CONCLUSION: Normal examination. Moreno Villagran MD Objective Remarks GENERAL: This is an obese, well-developed patient, in no apparent distress. SKIN: Cool and dry. Cervical scars from previous surgery present. HEAD: Atraumatic. Normocephalic. EYES: Pupils equal round and reactive. No scleral icterus. No injection or drainage. ENT: Nose without bleeding. Airway patent. NECK: Trachea midline. CARDIOVASCULAR: Regular rate and rhythm without murmurs, gallops, or rubs. RESPIRATORY: Clear to auscultation. Breath sounds equal bilaterally. No wheezes , rales, or rhonchi. GASTROINTESTINAL: Abdomen soft, non-tender, nondistended. MUSCULOSKELETAL: Extremities without clubbing, cyanosis, or edema. No calf tenderness. NEUROLOGICAL: Awake and alert. Cranial nerves II through XII grossly intact. Motor and sensory grossly within normal limits. Normal speech. Procedures None A/P Problem List: (1) HTN (hypertension) ICD Code: I10 - Essential (primary) hypertension (2) Adjustment disorder with mixed anxiety and depressed mood ICD Code: F43.23 - Adjustment disorder with mixed anxiety and depressed mood (3) Adjustment disorder with depressed mood ICD Code: F43.21 - Adjustment disorder with depressed mood (4) Opioid withdrawal ICD Code: F11.23 - Opioid dependence with withdrawal Status: Acute (5) Chronic pain ICD Code: G89.29 - Other chronic pain Status: Acute (6) Fibromyalgia ICD Code: M79.7 - Fibromyalgia Status: Acute Assessment and Plan Patient is a 57-year-old female with primary medical history of HTN, cervical stenosis, chronic neck pain who initially came to the hospital for generalized pain all over, chest feeling heavy, heart racing, but he feels like seizing" sweats worsening after stopping taking methadone and Lyrica. She reports suicidal ideation. She is now admitted to inpatient psychiatry unit for further evaluation. Consulted for assistance with persistent back and neck pain with history of methadone use and Suboxone use. Adjustment disorder, depressed mood Suicidal ideation -Managed by psychiatry team Chronic pain Fibromyalgia Neuropathy Possible opiate withdrawal -Possibly with depressive component. -Patient does not want opioid narcotics. Baclofen 3 times daily. Gabapentin 3 times daily. Toradol as needed. Patient with continued complaints of bilateral lower extremity nerve pain. Will increase baclofen dose to 15 mg 3 times daily. Assess response. -Clonidine patch 1 dose. Will not send patient home with patch. Previously discussed with patient -Gabapentin to 600mg 3 times daily. Dizziness and sleepiness now resolved likely due to increase in gabapentin. - Continue monitoring. HTN -Continue home medication hydrochlorothiazide, lisinopril -Monitor BP trend -Clonidine patch added for opiate withdrawal HLD -Patient states she was taking fenofibrate prior. -ASCVD risk less than 5%. She is not a statin therapy candidate. - Encouraged lifestyle changes including diet and exercise and weight loss. DVT prop ambulatory Discussed with patient and nurse. Problem Qualifiers (1) Chronic pain: Qualified Codes: G89.29 - Other chronic pain Valarie Saavedra Feb 25, 2018 16:11
[2018-02-25] MEDS ORDERED: PILL SPLITTER OTHER PRN (16:15)
[2018-02-25 18:18] VITALS: BP 127/56; PULSE 68; RESP 17; TEMP 98.7; O2SAT 97
[2018-02-25] MEDS: QUEtiapine FUMARATE 100 MG TAB PO SCH (21:19)
[2018-02-26] MEDS: hydrOXYzine HCL 50 MG TAB PO PRN ×3 (00:42→23:47)
[2018-02-26] MEDS: KETOROLAC TROMETHAMINE 10 MG TAB PO PRN ×3 (00:42→20:59)
[2018-02-26] MEDS: BACLOFEN 10 MG TAB PO SCH ×3 (05:27→20:55)
[2018-02-26] MEDS: LEVOTHYROXINE SODIUM 25 MCG TAB PO SCH (05:28)
[2018-02-26] MEDS: LEVOTHYROXINE SODIUM 112 MCG TAB PO SCH (05:28)
[2018-02-26 05:51] VITALS: BP 108/60; PULSE 57; RESP 16; TEMP 98.1; O2SAT 98
[2018-02-26] MEDS: ACETAMINOPHEN 325 MG TAB PO PRN ×2 (06:36→17:20)
[2018-02-26] MEDS: LISINOPRIL 20 MG TAB PO SCH (08:48)
[2018-02-26] MEDS: GABAPENTIN 300 MG CAP PO SCH ×3 (08:48→17:20)
[2018-02-26] MEDS: DULoxetine HCl DR 60 MG CAP PO SCH (08:48)
[2018-02-26] MEDS: HYDROCHLOROTHIAZIDE 12.5 MG CAP PO SCH (08:51)
[2018-02-26] MEDS: QUEtiapine FUMARATE 25 MG TAB PO SCH (09:00)
--- NOTE | 2018-02-26 11:07 | HHI.PYPN ---
Subjective Chief Complaint: Depression, anxiety, SI Remarks Patient seen and examined with nurse. Chart reviewed. Case discussed with nursing staff. Per nursing staff, patient is interacting somewhat better on the unit but remains depressed and focused on pain issues. On my examination today, the patient remains depressed. She had been feeling better over the weekend, she says, but "today doesn't seem as hopeful." She does articulate some passive thoughts of but no active SI. She complains of poor concentration and ongoing issues with sleep. She does not find the daytime doses of Seroquel particularly helpful but is agreeable to titrating the HS dose for sleep. Some mild tremulousness but no other side effects from medications. No acute physical complaints. Review of Systems Except as stated in HPI: all other systems reviewed are Neg Mental Status Examination Appearance: Appropriate Consciousness: Alert Orientation: x4 Motor Activity: Other (Again mild cogwheeling and mild resting tremor. No other motor abnormalities noted.) Speech: Unremarkable Language: Adequate Fund of Knowledge: Adequate Attention and Concentration: Adequate Memory: Unremarkable (Remains grossly intact on clinical exam) Mood: Other (Depressed) Affect: Blunt Thought Process & Associations: Intact, Logical, Linear Thought Content: Appropriate Hallucination Type: None Delusion Type: None Suicidal Ideation: No Suicidal Plan: No Suicidal Intention: No Homicidal Ideation: No Homicidal Plan: No Homicidal Intention: No Insight: Fair Judgment: Impulsive Results Labs Labs reviewed. No new labs. Vitals/IOs Vital Signs Date Time Temp Pulse Resp B/P (MAP) Pulse Ox O2 Delivery O2 Flow Rate FiO2 02/26/18 05:51 98.1 57 16 108/60 (09) 98 Assessment & Plan Problem List: (1) Adjustment disorder with mixed anxiety and depressed mood ICD Codes: F43.23 - Adjustment disorder with mixed anxiety and depressed mood Assessment & Plan Titrate nighttime dose of Seroquel to 300 mg and discontinue daytime doses. Add low-dose scheduled Cogentin for possible EPS. Continue Cymbalta as ordered. Hospitalist input noted and appreciated. Continue to monitor on the inpatient unit. Continue other medications and care as ordered. Justification for Cont. Inpt. Med changes. Monitoring for impairment in safety. Risk for decompensation in less restrictive environment. Discharge Planning Pending psychiatric stabilization. Possible discharge in next day or two. Request HC Surrog/Guard Advoc?: No Marc Mckeon MD Feb 26, 2018 11:07
[2018-02-26] MEDS: BENZTROPINE MESYLATE 1 MG TAB PO SCH ×2 (12:13→20:54)
--- NOTE | 2018-02-26 12:41 | HHI.PR ---
Subjective Remarks Follow up visit HTN, cervical stenosis, chronic neck and back pain, neuropathy, fibromyalgia. Patient is seen and examined in her room she repots feeling well today, neck and back pain is mildly improved. She states that she has plans for followup with pain management when she is discharged. She would like to be taken off on opiates and states her pain management doctor will be trying medical marijuana for pain. Denies any fevers, chills, n/v/d, dizziness, headache, SOB, or cough. Objective Vitals Vital Signs Date Time Temp Pulse Resp B/P (MAP) Pulse Ox O2 Delivery O2 Flow Rate FiO2 02/26/18 05:51 98.1 57 16 108/60 (76) 98 02/25/18 18:18 98.7 68 17 127/56 (79) 97 02/25/18 18:11 16 I/O 02/25/18 02/25/18 02/25/18 02/26/18 02/26/18 02/26/18 07:00 15:00 23:00 07:00 15:00 23:00 Intake Total 900 ml Balance 900 ml Intake Oral 900 ml Result Diagram: 02/22/18 0638 Objective Remarks GENERAL: This is an obese, well-developed patient, in no apparent distress. SKIN: Cool and dry. Cervical scars from previous surgery present. HEAD: Atraumatic. Normocephalic. EYES: Pupils equal round and reactive. No scleral icterus. No injection or drainage. ENT: Nose without bleeding. Airway patent. NECK: Trachea midline. Limited ROM unable to hyperextend, Hyperflex. Unable to turn laterally. CARDIOVASCULAR: Regular rate and rhythm without murmurs, gallops, or rubs. RESPIRATORY: Clear to auscultation. Breath sounds equal bilaterally. No wheezes , rales, or rhonchi. GASTROINTESTINAL: Abdomen soft, non-tender, nondistended. MUSCULOSKELETAL: Extremities without clubbing, cyanosis, or edema. Joint tenderness Bilateral knee. No calf tenderness. NEUROLOGICAL: Awake and alert. Cranial nerves II through XII grossly intact. Motor and sensory grossly within normal limits. Normal speech. Procedures None A/P Problem List: (1) HTN (hypertension) ICD Code: I10 - Essential (primary) hypertension (2) Adjustment disorder with mixed anxiety and depressed mood ICD Code: F43.23 - Adjustment disorder with mixed anxiety and depressed mood (3) Adjustment disorder with depressed mood ICD Code: F43.21 - Adjustment disorder with depressed mood (4) Opioid withdrawal ICD Code: F11.23 - Opioid dependence with withdrawal Status: Acute (5) Chronic pain ICD Code: G89.29 - Other chronic pain Status: Acute (6) Fibromyalgia ICD Code: M79.7 - Fibromyalgia Status: Acute Assessment and Plan Patient is a 57-year-old female with primary medical history of HTN, cervical stenosis, chronic neck pain who initially came to the hospital for generalized pain all over, chest feeling heavy, heart racing, but he feels like seizing" sweats worsening after stopping taking methadone and Lyrica. She reports suicidal ideation. She is now admitted to inpatient psychiatry unit for further evaluation. Consulted for assistance with persistent back and neck pain with history of methadone use and Suboxone use. Adjustment disorder, depressed mood Suicidal ideation -Managed by psychiatry team Chronic pain Fibromyalgia Neuropathy Possible opiate withdrawal -Possibly with depressive component. -Patient does want opioid narcotics. Baclofen 3 times daily. Gabapentin 3 times daily. Toradol as needed. - Baclofen increased to 15mg TID, with some relief, will need to followup with pain management as out patient -Clonidine patch 1 dose. Will not send patient home with patch. Previously discussed with patient -Gabapentin to 600 3 times daily. - Continue monitoring. HTN -Continue home medication hydrochlorothiazide, lisinopril -Monitor BP trend -Clonidine patch added for opiate withdrawal HLD -Patient states she was taking fenofibrate prior. -ASCVD risk less than 5%. She is not a statin therapy candidate. - Encouraged lifestyle changes including diet and exercise and weight loss. DVT prop ambulatory Discussed with patient and nurse. Problem Qualifiers (1) Chronic pain: Qualified Codes: G89.29 - Other chronic pain Maco Ocampo Feb 26, 2018 12:41
[2018-02-26] MEDS ORDERED: QUEtiapine FUMARATE 100 MG TAB PO SCH (21:00)
[2018-02-27] MEDS: LEVOTHYROXINE SODIUM 112 MCG TAB PO SCH (05:22)
[2018-02-27] MEDS: BACLOFEN 10 MG TAB PO SCH ×3 (05:22→21:57)
[2018-02-27] MEDS: LEVOTHYROXINE SODIUM 25 MCG TAB PO SCH (05:23)
[2018-02-27 05:40] VITALS: BP 119/72; PULSE 57; RESP 18; TEMP 97.5
[2018-02-27] MEDS: ACETAMINOPHEN 325 MG TAB PO PRN (07:47)
[2018-02-27] MEDS: BENZTROPINE MESYLATE 1 MG TAB PO SCH (08:13)
[2018-02-27] MEDS: LISINOPRIL 20 MG TAB PO SCH (08:13)
[2018-02-27] MEDS: HYDROCHLOROTHIAZIDE 12.5 MG CAP PO SCH (08:13)
[2018-02-27] MEDS: DULoxetine HCl DR 60 MG CAP PO SCH (08:13)
[2018-02-27] MEDS: GABAPENTIN 300 MG CAP PO SCH ×3 (08:14→18:16)
--- NOTE | 2018-02-27 10:03 | PD.TTN ---
Patient Problems 1. Discharge planning 2. Medication compliance 3. Knowledge deficit 4. Lack of coping skills Progress Toward Goals Provider Present: Dr. Trinity Mckeon Provider Input: 02/27/18 - Patient is being considered for discharge today. 02/23/18 - Patient is presently taking Cymbalta and Seroquel. She is detoxing from opiate addicition. Psychiatric Counselors Present: MARGARET Barcenas Psych Therapist Input: 02/27/18 - Counselor reported that I have spoken to patient's and he infromed counselor that the gun has been removed from the home. 02/23/18 - Counselor spoke to the patient's who reproted the gun has been removed from the home. Group Spec/RT/OT/DUNLAP Present: FABI Thomas Group Spec/RT/OT/DUNLAP Input: 02/27/18 - Patient attends groups and is appropriate. 02/23/18 - limited participation. Discharge Plan [facility] 02/23/18 - Patient will return home following discharge and will follow with [facility]/ [facility], or a provider of her choice. Documentation Scribe: MARGARET Barcenas Date Resolved: February 27, 2018 Susu Newman February 27, 2018 10:03
--- NOTE | 2018-02-27 10:20 | HHI.PYPN ---
Subjective Chief Complaint: Depression, anxiety, SI Remarks Patient seen and examined with nurse. Chart reviewed. Case discussed with nursing staff. Patient reportedly sleeping poorly. She is socializing somewhat more. Case discussed in treatment team. On my exam today, patient remains dysphoric. She complains of poor sleep. She complains of ongoing anxiety and says that she feels "jittery" and like she is "jump[ing] out of my skin." This sensation has reportedly gotten worse with titration of Seroquel, and patient has had no relief from the Cogentin. She says she feels like she "can't get settled." Complains of some mild grogginess and dry mouth in addition to above side effects but no other side effects from medications. No other physical complaints. Review of Systems Except as stated in HPI: all other systems reviewed are Neg Mental Status Examination Appearance: Appropriate Consciousness: Alert Orientation: x4 Motor Activity: Normal gait, Other (No new motor abnormalities noted.) Speech: Unremarkable Language: Adequate Fund of Knowledge: Adequate Attention and Concentration: Adequate Memory: Unremarkable (Remains grossly intact on clinical exam) Mood: Other (Mood remains depressed but improving versus admission) Affect: Blunt Thought Process & Associations: Intact, Logical, Linear Thought Content: Appropriate Hallucination Type: None Delusion Type: None Suicidal Ideation: No Suicidal Plan: No Suicidal Intention: No Homicidal Ideation: No Homicidal Plan: No Homicidal Intention: No Insight: Fair Judgment: Impulsive Results Labs Labs reviewed. Vitals/IOs Vital Signs Date Time Temp Pulse Resp B/P (MAP) Pulse Ox O2 Delivery O2 Flow Rate FiO2 02/27/18 05:40 97.5 57 18 119/72 (88) 02/26/18 05:51 98 Intake and Output 02/27/18 02/27/18 02/28/18 08:00 16:00 00:00 Intake Total 420 ml Balance 420 ml Assessment & Plan Problem List: (1) Adjustment disorder with mixed anxiety and depressed mood ICD Codes: F43.23 - Adjustment disorder with mixed anxiety and depressed mood Assessment & Plan Given patient report, concerned that she is experiencing akathisia from antipsychotic. This side effect seems to be worsening with dose titration. I have discussed pharmacotherapeutic options at this point, and we settle on discontinuing Seroquel and with it Cogentin. I will start patient on trazodone for sleep 100mg qHS with additional 100mg qHS p.r.n. insomnia. Continue other medications and care as ordered. Justification for Cont. Inpt. Complicating condition. Med changes. High risk for decompensation in less restrictive setting. Discharge Planning Possible discharge tomorrow. Request HC Surrog/Guard Advoc?: No Marc Mckeon MD February 27, 2018 10:20
[2018-02-27] MEDS ORDERED: traZODone HCL 50 MG TAB PO PRN (10:30)
[2018-02-27] MEDS: hydrOXYzine HCL 50 MG TAB PO PRN ×2 (10:37→21:16)
[2018-02-27] MEDS ORDERED: traZODone HCL 100 MG TAB PO PRN (11:45)
--- NOTE | 2018-02-27 12:53 | HHI.PR ---
Subjective Remarks Follow-up visit for HTN, cervical stenosis, chronic neck/back pain, and neuropathy. Patient is participating in group therapy and ambulating without assistive devices. She reports that today she is feeling much better and feels as if the gabapentin is finally working. She states that the numbness and pain are not completely gone but she "can live with it". She denies any fevers, chills, nausea, vomiting, diarrhea, headache, dizziness, shortness of breath, cough or chest pain. Patient complains of dry eyes, as well as very dry sinuses which usually is not the case. Recently started on Cogentin. Objective Vitals Vital Signs Date Time Temp Pulse Resp B/P (MAP) Pulse Ox O2 Delivery O2 Flow Rate FiO2 02/27/18 05:40 97.5 57 18 119/72 (88) I/O 02/26/18 02/26/18 02/26/18 02/27/18 02/27/18 02/27/18 07:00 15:00 23:00 07:00 15:00 23:00 Intake Total 660 ml Balance 660 ml Intake Oral 660 ml Imaging Last Impressions Chest X-Ray 02/21/18 1016 Signed Impressions: Service Date/Time: Wednesday, February 21, 2018 11:09 - CONCLUSION: Normal examination. Moreno Villagran MD Objective Remarks GENERAL: This is an obese, well-developed patient, in no apparent distress. SKIN: Cool and dry. Cervical scars from previous surgery present. HEAD: Atraumatic. Normocephalic. EYES: Pupils equal round and reactive. No scleral icterus. No injection or drainage. NECK: Trachea midline. Limited ROM unable to hyperextend, Hyperflex. Unable to turn laterally. CARDIOVASCULAR: Regular rate and rhythm without murmurs, gallops, or rubs. RESPIRATORY: Clear to auscultation. Breath sounds equal bilaterally. No wheezes , rales, or rhonchi. MUSCULOSKELETAL: Extremities without clubbing, cyanosis, or edema. Joint tenderness Bilateral knee. NEUROLOGICAL: Awake and alert. Cranial nerves II through XII grossly intact. Motor and sensory grossly within normal limits. Normal speech. Procedures None A/P Problem List: (1) HTN (hypertension) ICD Code: I10 - Essential (primary) hypertension (2) Adjustment disorder with mixed anxiety and depressed mood ICD Code: F43.23 - Adjustment disorder with mixed anxiety and depressed mood (3) Adjustment disorder with depressed mood ICD Code: F43.21 - Adjustment disorder with depressed mood (4) Opioid withdrawal ICD Code: F11.23 - Opioid dependence with withdrawal Status: Acute (5) Chronic pain ICD Code: G89.29 - Other chronic pain Status: Acute (6) Fibromyalgia ICD Code: M79.7 - Fibromyalgia Status: Acute Assessment and Plan Patient is a 57-year-old female with primary medical history of HTN, cervical stenosis, chronic neck pain who initially came to the hospital for generalized pain all over, chest feeling heavy, heart racing, but he feels like seizing" sweats worsening after stopping taking methadone and Lyrica. She reports suicidal ideation. She is now admitted to inpatient psychiatry unit for further evaluation. Consulted for assistance with persistent back and neck pain with history of methadone use and Suboxone use. Adjustment disorder, depressed mood Suicidal ideation -Managed by psychiatry team -Recently started on Cogentin, likely the reason by hand her dry eyes and sinuses. Will add lubricating eyedrops as needed. Chronic pain Fibromyalgia Neuropathy Possible opiate withdrawal -Possibly with depressive component. -Patient does want opioid narcotics. Baclofen 3 times daily. Gabapentin 3 times daily. Toradol as needed. - Baclofen 15mg TID, will need to followup with pain management as out patient -Clonidine patch 1 dose. Will not send patient home with patch. Previously discussed with patient -Gabapentin to 600 3 times daily. -Reports pain is much better, and states that she can "can live with it" HTN -Continue home medication hydrochlorothiazide, lisinopril -Monitor BP trend -Clonidine patch added for opiate withdrawal HLD -Patient states she was taking fenofibrate prior. -ASCVD risk less than 5%. She is not a statin therapy candidate. - Encouraged lifestyle changes including diet and exercise and weight loss. DVT prop ambulatory Discussed with patient and nurse. [facility] will sign off, please reconsult if needed. Problem Qualifiers (1) Chronic pain: Qualified Codes: G89.29 - Other chronic pain Maco Ocampo February 27, 2018 12:53
[2018-02-27] MEDS ORDERED: ARTIFICIAL TEARS OPTH SOLN 15 ML BTL EACH EYE PRN (16:15)
[2018-02-27 18:27] VITALS: BP 159/70; PULSE 64; RESP 17; TEMP 99; O2SAT 96
[2018-02-27] MEDS ORDERED: traZODone HCL 100 MG TAB PO SCH (21:00)
[2018-02-28] MEDS: BACLOFEN 10 MG TAB PO SCH (05:56)
[2018-02-28] MEDS: LEVOTHYROXINE SODIUM 112 MCG TAB PO SCH (05:57)
[2018-02-28] MEDS: LEVOTHYROXINE SODIUM 25 MCG TAB PO SCH (05:57)
[2018-02-28] MEDS: hydrOXYzine HCL 50 MG TAB PO PRN (06:04)
[2018-02-28 06:21] VITALS: BP 119/56; PULSE 58; RESP 18; TEMP 98.1; O2SAT 96
[2018-02-28] MEDS: DULoxetine HCl DR 60 MG CAP PO SCH (08:45)
[2018-02-28] MEDS: HYDROCHLOROTHIAZIDE 12.5 MG CAP PO SCH (08:45)
[2018-02-28] MEDS: LISINOPRIL 20 MG TAB PO SCH (08:45)
[2018-02-28] MEDS: GABAPENTIN 300 MG CAP PO SCH ×2 (08:45→12:40)
[2018-02-28] MEDS ORDERED: TRAZ50TA12 PO (10:50)
[2018-02-28] MEDS ORDERED: CLON.1T T-DERMAL (10:50)
[2018-02-28] MEDS ORDERED: NEUR300C PO (10:50)
[2018-02-28] MEDS ORDERED: LISI-515 PO (10:50)
[2018-02-28] MEDS ORDERED: HYDR12.57 PO (10:50)
[2018-02-28] MEDS ORDERED: BACL10TA PO (10:50)
[2018-02-28] MEDS ORDERED: DULO1CAP3 PO (10:50)
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
[2018-02-28] MEDS: ACETAMINOPHEN 325 MG TAB PO PRN (12:41)
[2018-03-01] MEDS ORDERED: REMOVE OLD PATCH T-DERMAL SCH (14:45)
== END 2018-02-28 13:50 | disposition home or self-care (01) | DRG 882 ==
LOC: NEPD 09:33 → NEDA 15:17 → H260 17:39
PROVIDERS: ADMIT Psychiatry & Neurology Psychiatry; ATTEND Psychiatry & Neurology Psychiatry
DX: F43.23 Adjustment disorder with mixed anxiety and depressed mood (principal); K86.1 Other chronic pancreatitis; R45.851 Suicidal ideations; F11.23 Opioid dependence with withdrawal; I10 Essential (primary) hypertension; E78.5 Hyperlipidemia, unspecified; M79.7 Fibromyalgia; G89.29 Other chronic pain; M54.2 Cervicalgia; G62.9 Polyneuropathy, unspecified
CPT/HCPCS: 71045; 76937; 80048; 80053; 80061; 80307; 82550; 83036; 84443; 84484; 85025; 93005; 96372; J2060